=== PATIENT | female | born 1980 | race Caucasian/White ===

== ENCOUNTER 2024-03-27 22:56 | Emergency (ER) | payer OTHER ==
[~2024-03-27] VITALS: Ht 162.6 cm; Wt 149.7 kg
[2024-03-27] MEDS ORDERED: Lactated Ringer's 1,000 ML IV ONE (23:35)
[2024-03-27] MEDS ORDERED: Diazepam 5 MG / ML 2ML SYR IV ONE (23:35)
[2024-03-27 23:49] LABS: BASOPHILS ABSOLUTE AUTO 0.03 K/mm3 (0.00-0.23); BASOPHILS PERCENT AUTO 0 % (0-2); EOSINOPHILS PERCENT AUTO 1 % (0-6); Hematocrit 40.9 % (33.0-51.0); Hemoglobin 13.4 g/dL (11.5-16.0); IMMATURE GRAN ABSOLUTE AUTO 0.05 K/mm3 (0.00-0.10); IMMATURE GRAN PERCENT AUTO 1 % (0-1); LYMPHOCYTES ABSOLUTE AUTO 1.69 K/mm3 (0.84-5.20); LYMPHOCYTES PERCENT AUTO 19 % (21-46); MONOCYTES ABSOLUTE AUTO 0.39 K/mm3 (0.16-1.47); MONOCYTES PERCENT AUTO 4 % (4-13); Mean Corpuscular HGB 30.3 pg (26.0-34.0); Mean Corpuscular HGB Conc 32.8 g/dL (31.5-36.5); Mean Corpuscular Volume 93 fL (80-100); Mean Platelet Volume 9.9 fL (9.1-12.4); NEUTROPHILS ABSOLUTE AUTO 6.84 K/mm3 (1.96-9.15); NEUTROPHILS PERCENT AUTO 75 % (41-73); Platelet Count 187 K/mm3 (150-400); RDW Coefficient Variation 14.3 % (11.7-14.2); RDW Standard Deviation 48.4 fL (35.1-46.3); Red Blood Cell Count 4.42 M/mm3 (3.80-5.20)
[2024-03-28 00:11] LABS: Albumin, Blood 3.6 g/dL (3.4-5.0); Albumin/Globulin Ratio 0.9 (0.8-1.8); Bilirubin, Total 0.3 mg/dL (0.1-1.0); Bun/Creatinine Ratio 16.5 (12.0-20.0); Calcium, Blood 9.1 mg/dL (8.5-10.1); Creatinine, Blood 0.73 mg/dL (0.40-1.00); Globulin, Blood 4.1 g/dL (2.2-4.0); Total Protein, Blood 7.7 g/dL (6.4-8.2)
[2024-03-28] MEDS ORDERED: HYDROmorphone HCl/Pf 1MG SYR IV ONE (00:55)
[2024-03-28] MEDS ORDERED: Ondansetron HCl 2 MG / ML 2ML Vial IV ONE (01:35)
[2024-03-28 02:22] LABS: International Normalized Ratio 0.98; Prothrombin Time Results 10.5 Sec (9.7-11.5)
== END 2024-03-28 02:30 | disposition short-term general hospital (02) ==
LOC: ER 22:56
PROVIDERS: Student in an Organized Health Care Education/Training Program
DX: S12.090A Other displaced fracture of first cervical vertebra, initial encounter for closed fracture (principal); S12.091A Other nondisplaced fracture of first cervical vertebra, initial encounter for closed fracture; G89.11 Acute pain due to trauma; R20.2 Paresthesia of skin; W01.198A Fall on same level from slipping, tripping and stumbling with subsequent striking against other object, initial encounter; G47.30 Sleep apnea, unspecified; E11.42 Type 2 diabetes mellitus with diabetic polyneuropathy; I10 Essential (primary) hypertension; E78.5 Hyperlipidemia, unspecified; Z98.1 Arthrodesis status; Z88.8 Allergy status to other drugs, medicaments and biological substances; Z88.1 Allergy status to other antibiotic agents
CPT/HCPCS: 70450; 71045; 71260; 72125; 74177; 80053; 83690; 84703; 85025; 85610; 85730; 86850; 86900; 86901; 96361; 96374-59; 96375-59; 99285-25; J1170; J2405; J3360; J7120; Q9967